=== PATIENT | female | born 1935 | race Caucasian/White ===

== ENCOUNTER 2017-01-27 14:50 | Inpatient (IN) | payer MEDICARE ==
[~2017-01-27 14:50] MED LIST: AMLO10TA4 PO; CYAN10009 PO; DULO30CA2 PO; ESOM40CA PO; ESTR0.623 PO; GLYB5TAB7 PO; HYDR-548 PO; LEVO150T PO; MAGN400O6 PO; MULT1TAB64 PO; Magnesium Oxide PO; Metformin Hcl PO; SIMV20TA6 PO; VALS160T2 PO
[2017-01-27 16:00] VITALS: BP 160/74
[2017-01-27] MEDS ORDERED: Z GUARD REMEDY PASTE 57 GM TUBE TOP PRN (16:30)
[2017-01-27] MEDS ORDERED: DEXTROSE 50% 50 ML DISP.SYRIN IV PRN (17:15)
--- NOTE | 2017-01-27 17:30 | NUR ---
1600 Admitted an 81 y/o female from [facility] with diagnosis of Bilateral CVA transported via gurney. Patient is alert, verbally responsive, able to make needs known, not in any form of acute distress. She denies any pain or discomfort. Oriented to staff, room and use of devices with verbalized understanding. Noted with dressing on the left chest, clean and dry. Per report from nurse Abdullahi from [facility] Loop recorder was just placed this morning on the left chest. Prot[employer] Link Monitor was brought with the patient, plugged in and set it up. Patient corporate law assistant button handed to patient and instructed to press whenever she feels any symptoms like chest pain, dizziness or fainting and verbalized understanding. Jennings catheter removed today as endorsed by Abdullahi. Patient is voiding freely using bed alvarez. Assisted to her needs. Call light placed within reach. Notified Dr. Davalos of admission and saw patient. Spoke to Dr. Kilpatrick regarding admission and verified medication orders and carried out.
[2017-01-27] MEDS: BLOOD SUGAR DIAGNOSTIC 1 EACH STRIP VI SCH ×2 (17:31→21:59)
[2017-01-27] MEDS ORDERED: ATOR80TA PO (18:13)
[2017-01-27] MEDS ORDERED: ONDA4TAB8 PO (18:13)
[2017-01-27] MEDS ORDERED: CARV6.252 PO (18:13)
[2017-01-27] MEDS ORDERED: ACET-2154 PO (18:13)
[2017-01-27] MEDS ORDERED: LEVO112T5 PO (18:13)
[2017-01-27] MEDS ORDERED: INSU3INS6 SQ (18:13)
[2017-01-27] MEDS ORDERED: VALS80TA2 GT (18:13)
[2017-01-27] MEDS ORDERED: ASPI-1169 PO (18:13)
[2017-01-27] MEDS ORDERED: DIPH25TA22 PO (18:13)
[2017-01-27] MEDS ORDERED: CLOP75TA33 PO (18:13)
[2017-01-27] MEDS ORDERED: MECL-102 PO (18:13)
[2017-01-27] MEDS ORDERED: INSU200I SQ (18:13)
[2017-01-27] MEDS ORDERED: CEROVITE SENIOR (18:18)
[2017-01-27] MEDS ORDERED: diphenhydrAMINE 25 MG CAP PO PRN (19:00)
[2017-01-27] MEDS ORDERED: ACETAMINOPHEN 325 MG TABLET PO PRN (19:00)
--- NOTE | 2017-01-27 19:00 | NUR ---
PATIENT ADMITTED DURING MORNING SHFIT AT 1600, UNDER THE CARE DR. SANCHES, MORNING RN VERIFIED ALL ORDERS, PATIENT ALERT ORIENTED, CONTINENT OF BLADDER, VOIDING FREELY, PATIENT HAS LEFT CHEST LOOP RECORDER, LEFT ANTECUBITAL BRUISE, OLD INCISION SCAR ON R INNER THIGH. KEPT CLEAN AND DRY.
[2017-01-27] MEDS: ONDANSETRON ODT 4 MG TAB.RAPDIS SL PRN (19:49)
[2017-01-27 20:00] VITALS: BP 171/81
--- NOTE | 2017-01-27 20:00 | NUR ---
PATIENT HAS ELEVATED BP 171/81. PULSE 76, PATIENT ASYMPTOMATIC, NO COMPLAIN OF HEADACHES, BUT COMPLAINING OF WANTING TO URINATE, GIVEN PAIN BED VERA URINATE PATIENT WITH 150CC YELLOW COLOR URINE. CONT TO MONITOR. PLACE A CALL TO DR SANCHES AWAITING FOR RESPONSE.
--- NOTE | 2017-01-27 20:00 | NUR ---
BLADDER SCAN THE PATIENT WITH 313 URINE, HOWEVER, PATIENT URINATE 200CC IN THE BED VERA VERBALIZED RELIEF, DENIES PAIN AT THIS TIME. CONT TO MONITOR.
--- NOTE | 2017-01-27 20:15 | NUR ---
DR SANCHES HAS NOT RETURNED THE CALL, NOTIFY RN MERCHANDISE PRESENTATION ASSOCIATE, SUGGEST TO MONITOR PATIENT BP AT THIS TIME. CONT TO MONITOR.
[2017-01-27] MEDS ORDERED: HOME MED MISCELLANEOUS SQ SCH (21:00)
[2017-01-27 21:30] VITALS: BP 168/79
--- NOTE | 2017-01-27 21:30 | NUR ---
PATIENT AWAKE ALERT, NO SOB NO CHEST PAIN NOTED, RECHECK BP 168/79, P 77, 0/10 PAIN, NO COMPLAIN OF DIZZINESS, NO HEADACHE, PATIENT STATED THAT HER BP ALWAYS RUNS HIGH CONT TO MONITOR.
[2017-01-27] MEDS: ATORVASTATIN 40 MG TABLET PO SCH (21:42)
[2017-01-27] MEDS: INSULIN DETEMIR 300 UNIT/3 ML CARTRIDGE SQ SCH (21:54)
[2017-01-27] MEDS: INSULIN REGULAR, HUMAN 300 UNIT/3 ML VIAL SQ PRN (22:01)
[2017-01-27 23:00] VITALS: BP 155/70
--- NOTE | 2017-01-27 23:00 | NUR ---
BP TRENDING DOWN, B/P 155/70, P 83, OXGEN SAT 97, NO SOB NO CHEST PAIN, CONT TO MONITOR.
[2017-01-27 23:06] VITALS: BP 122/81
[2017-01-28] MEDS: LEVOTHYROXINE SODIUM 112 MCG TABLET PO SCH (06:26)
[2017-01-28] MEDS: PANTOPRAZOLE SODIUM 40 MG TABLET.DR PO SCH (06:26)
[2017-01-28] MEDS: BLOOD SUGAR DIAGNOSTIC 1 EACH STRIP VI SCH ×4 (06:29→20:41)
--- NOTE | 2017-01-28 06:42 | NUR ---
PATIENT AWAKE ORIENTED, NO SOB NO CHEST PAIN, NO COMPLAIN OF PAIN, PATIENT STILL COMPLAIN OF POSITIONAL VERTIGO DURING CARE, BP STABLE 154/ 78, 76. CONT TO MONITOR.
[2017-01-28 06:49] VITALS: BP 126/51
--- NOTE | 2017-01-28 06:53 | NUR ---
BP 126/51 P76, OXYGEN SAT 97% NO SOB NO CHEST PAIN, CONT TO MONITOR.
[2017-01-28 07:43] LABS: BASOPHILS # (AUTO) 0.1 K/uL (0.0-8.0); BASOPHILS % (AUTO) 0.5 % (0.0-2.0); EOSINOPHILS # (AUTO) 0.4 K/uL (0.0-0.7); EOSINOPHILS % (AUTO) 2.4 % (0.0-7.0); HEMATOCRIT 36.2 % (37-47); HEMOGLOBIN 12.6 G/DL (12.0-16.0); LYMPHOCYTES # (AUTO) 2.6 K/UL (0.8-4.8); LYMPHOCYTES % (AUTO) 16.6 % (20.5-51.5); MEAN CORPUSCULAR HEMOGLOBIN 29.6 UUG (27.0-31.0); MEAN CORPUSCULAR HGB CONC 35 g/dL (32.0-37.0); MEAN CORPUSCULAR VOLUME 85.5 FL (81.0-99.0); MONOCYTES # (AUTO) 1.3 K/UL (0.1-1.30); MONOCYTES % (AUTO) 8.5 % (0.0-11.0); PLATELET COUNT (AUTO) 264 K/UL (150-450); RED BLOOD CELL COUNT(AUTO) 4.23 MIL/UL (4.2-5.4); WHITE BLOOD COUNT (AUTO) 15.4 K/UL (4.0-11.2)
[2017-01-28 08:00] LABS: CARBON DIOXIDE 28 mmol/L (21-32); CHLORIDE 102 mmol/L (98-107); CHOLESTEROL 124 mg/dL (<200); CREATININE 0.8 mg/dL (0.6-1.3); GLUCOSE 154 mg/dL (74-106); HDL CHOLESTEROL 50 mg/dL (40-60); POTASSIUM 4.1 mmol/L (3.5-5.1); TRIGLYCERIDES 116 MG/DL (30-150); UREA NITROGEN, BLOOD 8 mg/dL (7-18)
[2017-01-28] MEDS ORDERED: HOME MED MISCELLANEOUS SQ SCH (08:00)
--- NOTE | 2017-01-28 08:00 | NUR ---
Received patient awake in bed, watching tv, alert, verbally responsive, not in any form of acute distress. She denies any pain or discomfort at this time. Call light placed within reach. [employer] Link Monitor at bedside plugged and patient pediatric physician assistant button at patient's hand and instructed on the use and she verbalized understanding. Attended to her needs.
[2017-01-28 08:05] LABS: MAGNESIUM 1.2 mg/dL (1.8-2.4)
[2017-01-28] MEDS: MULTIVITAMINS,THERAPEUTIC TABLET PO SCH ×2 (08:19→17:52)
[2017-01-28] MEDS: ASPIRIN 81 MG TAB.CHEW PO SCH (08:19)
[2017-01-28] MEDS: CARVEDILOL 6.25 MG TABLET PO SCH ×2 (08:19→17:53)
[2017-01-28] MEDS: CLOPIDOGREL 75 MG TABLET PO SCH (08:19)
[2017-01-28 08:23] VITALS: BP 150/64
[2017-01-28] MEDS: INSULIN LISPRO 1000 UNITS/10 ML VIAL(HUMALOG) SQ SCH ×3 (08:24→17:00)
[2017-01-28] MEDS: INSULIN REGULAR, HUMAN 300 UNIT/3 ML VIAL SQ PRN ×2 (08:28→21:05)
[2017-01-28] MEDS ORDERED: VALSARTAN 80 MG TABLET PO SCH (09:00)
[2017-01-28] MEDS ORDERED: HOME MED MISCELLANEOUS PO SCH (09:00)
[2017-01-28] MEDS: MECLIZINE HCL 25 MG TABLET PO PRN (11:17)
[2017-01-28] MEDS: MAGNESIUM OXIDE 400 MG TABLET PO SCH ×2 (12:59→20:55)
--- NOTE | 2017-01-28 14:48 | NUR ---
REHAB TEAM CONFERENCE 01/28/17
--- NOTE | 2017-01-28 15:00 | NUR ---
Notified Dr. Sevilla who came to see patient regarding patient having episode of difficulty initiating to urinate and MD ordered UA w/ C&S. Specimen collected. Also informed MD regarding oxygen at room air 91-92% as endorsed by marble setter nurse. MD ordered chest X-Ray and and may use oxygen 2LPM via NC PRN for SpO2 92 and below. Patient made aware and agreeable.
[2017-01-28 15:08] LABS: *BILIRUBIN,URIN NEGATIVE (NEGATIVE); *BLOOD, URINE 2+ (NEGATIVE); *CLARITY,URINE TURBID (CLEAR); *COLOR,URINE YELLOW (YELLOW); *KETONES,URINE NEGATIVE (NEGATIVE); *PROTEIN,URINE 2+ (NEGATIVE); LEUKOCYTE ESTERASE ,URINE 3+ (NEGATIVE); NITRITE, URINE POSITIVE (NEGATIVE); UGLUCOSE NEGATIVE (NEGATIVE)
[2017-01-28 16:23] LABS: BACTERIA,URINE MANY /HPF (NONE SEEN); SQUAMOUS EPITHELIAL CELL,UR FEW /HPF (NONE SEEN); WBC,URINE TNTC /HPF (0-3)
[2017-01-28] MEDS: VALSARTAN 80 MG TABLET PO SCH (17:52)
[2017-01-28 20:28] VITALS: BP 151/64
[2017-01-28] MEDS: ATORVASTATIN 40 MG TABLET PO SCH (20:55)
[2017-01-28] MEDS: INSULIN DETEMIR 300 UNIT/3 ML CARTRIDGE SQ SCH (21:06)
[2017-01-28] MEDS: LEVOFLOXACIN 250 MG TABLET PO SCH (22:21)
[2017-01-29] MEDS: LEVOTHYROXINE SODIUM 112 MCG TABLET PO SCH (06:57)
[2017-01-29] MEDS: PANTOPRAZOLE SODIUM 40 MG TABLET.DR PO SCH (06:58)
[2017-01-29] MEDS: BLOOD SUGAR DIAGNOSTIC 1 EACH STRIP VI SCH ×4 (07:05→21:19)
[2017-01-29 07:44] LABS: BASOPHILS % (AUTO) 0.3 % (0.0-2.0); EOSINOPHILS # (AUTO) 0.4 K/uL (0.0-0.7); EOSINOPHILS % (AUTO) 2.8 % (0.0-7.0); HEMATOCRIT 36.7 % (37-47); HEMOGLOBIN 12.3 G/DL (12.0-16.0); LYMPHOCYTES % (AUTO) 21.8 % (20.5-51.5); MEAN CORPUSCULAR HEMOGLOBIN 29.2 UUG (27.0-31.0); MEAN CORPUSCULAR HGB CONC 33 g/dL (32.0-37.0); MEAN CORPUSCULAR VOLUME 87.3 FL (81.0-99.0); MONOCYTES # (AUTO) 1.4 K/UL (0.1-1.30); MONOCYTES % (AUTO) 10.3 % (0.0-11.0); NEUTROPHILS # (AUTO) 8.9 K/UL (1.8-8.9); NEUTROPHILS % (AUTO) 64.8 % (38.5-71.5); PLATELET COUNT (AUTO) 194 K/UL (150-450); WHITE BLOOD COUNT (AUTO) 13.7 K/UL (4.0-11.2)
[2017-01-29 08:00] VITALS: BP 134/72
[2017-01-29] MEDS: INSULIN LISPRO 1000 UNITS/10 ML VIAL(HUMALOG) SQ SCH ×3 (08:04→17:00)
[2017-01-29] MEDS: LEVOFLOXACIN 250 MG TABLET PO SCH (08:10)
[2017-01-29] MEDS: CLOPIDOGREL 75 MG TABLET PO SCH (08:10)
[2017-01-29] MEDS: ASPIRIN 81 MG TAB.CHEW PO SCH (08:10)
[2017-01-29] MEDS: MULTIVITAMINS,THERAPEUTIC TABLET PO SCH ×2 (08:11→16:40)
[2017-01-29] MEDS: VALSARTAN 80 MG TABLET PO SCH ×2 (08:12→16:41)
[2017-01-29] MEDS: CARVEDILOL 6.25 MG TABLET PO SCH ×2 (08:12→18:41)
[2017-01-29 08:26] LABS: ALANINE AMINOTRANSFERASE 16 U/L (14-59); ALKALINE PHOSPHATASE 80 U/L (50-136); ASPARTATE AMINOTRANSFERASE 16 U/L (15-37); BILIRUBIN,TOTAL 0.4 mg/dL (0.2-1.0); CARBON DIOXIDE 27 mmol/L (21-32); CHLORIDE 101 mmol/L (98-107); CREATININE 0.7 mg/dL (0.6-1.3); GLUCOSE 150 mg/dL (74-106); PHOSPHOROUS 3.7 mg/dL (2.5-4.9); POTASSIUM 4.3 mmol/L (3.5-5.1); TOTAL PROTEIN, SERUM 6.7 g/dL (6.4-8.2); UREA NITROGEN, BLOOD 8 mg/dL (7-18)
[2017-01-29 08:38] LABS: MAGNESIUM 1.3 mg/dL (1.8-2.4)
[2017-01-29] MEDS: ONDANSETRON ODT 4 MG TAB.RAPDIS SL PRN ×2 (08:52→16:43)
[2017-01-29] MEDS: MECLIZINE HCL 25 MG TABLET PO PRN ×2 (08:52→16:43)
[2017-01-29 11:57] VITALS: BP 128/59
[2017-01-29] MEDS ORDERED: LEVOFLOXACIN 250 MG TABLET PO SCH (14:00)
--- NOTE | 2017-01-29 15:00 | NUR ---
Called pharmacy regarding levaquin tab- already given this am. Will be rescheduled for 0900 tomorrow per pharmacist.
--- NOTE | 2017-01-29 15:04 | NUR ---
Internal Grinding Machine Operator: SW met attempted to meet with pt today to assess needs and provide support, however pt is asleep. Pt is an 81-year old female admitted to ARU for functional decline and impaired ambulation. Information was obtained through pt's son, Huber during yesterdays 01/28/17 IDT meeting. Per son, the pt lives at home with him and her family. Pt has a strong support and involved family. Per son, the pt has little motivation at home in completing her ADL's. Pt's son reported the pt may become resistant to complying with ARU goals. SW will address patient's issues of loss related to her decline in functioning. SW will provide linkage to resources (caregiving). SW will encourage pt to comply with ARU goals.
[2017-01-29] MEDS ORDERED: MAGNESIUM OXIDE 400 MG TABLET PO ONE (16:00)
--- NOTE | 2017-01-29 16:50 | NUR ---
Pt. c/o nausea and blurred vision. Meclizine and Zofran given per aug. . small meals. 2 l via n/c. Participation in PT and OT limited today. No acute distress.
--- NOTE | 2017-01-29 19:29 | NUR ---
PT IS LAYING IN BED COMFORTABLY. NO S/S OF RESPIRATORY DISTRESS NOTED ALL SAFETY NEEDS ARE MET. PT REPORT RECEIVED FROM SUNDAY ALVARADO AT [id number]
--- NOTE | 2017-01-29 19:30 | NUR ---
Patient received in bed. Family at bedside. Alert and verbally responsive. Able to make needs known. Denies any pain and discomfort. No acute distress. On O2 @ 2L via NC. Kept clean and dry. All needs attended to promptly. Calll light within reach. Will continue to monitor.
[2017-01-29] MEDS: MAGNESIUM OXIDE 400 MG TABLET PO SCH (21:19)
[2017-01-29] MEDS: ATORVASTATIN 40 MG TABLET PO SCH (21:19)
[2017-01-29] MEDS: DIAZEPAM 2 MG TABLET PO SCH (21:19)
[2017-01-29] MEDS: INSULIN DETEMIR 300 UNIT/3 ML CARTRIDGE SQ SCH (21:24)
[2017-01-29] MEDS: INSULIN REGULAR, HUMAN 300 UNIT/3 ML VIAL SQ PRN (21:25)
[2017-01-29 22:10] VITALS: BP 152/58
[2017-01-30] MEDS: PANTOPRAZOLE SODIUM 40 MG TABLET.DR PO SCH (06:34)
[2017-01-30] MEDS: LEVOTHYROXINE SODIUM 112 MCG TABLET PO SCH (06:34)
[2017-01-30] MEDS: BLOOD SUGAR DIAGNOSTIC 1 EACH STRIP VI SCH ×4 (06:39→21:53)
--- NOTE | 2017-01-30 07:00 | NUR ---
Patient is awake at this time. 7am meds given. Alert and verbally responsive. Able to make needs known. No c/o pain and discomfort. No acute distress. BS is 143. Will endorse to AM shift. All needs attended to promptly. Call light within reach. Will continue to monitor.
--- NOTE | 2017-01-30 07:05 | NUR ---
Pt received in bed, a/ox3, no distress noted. HOB elevated, on O2 at 2L via NC, Plan of care discussed, call light within reach, bed kept low/locked position.
[2017-01-30 08:00] VITALS: BP 152/60
[2017-01-30] MEDS: CARVEDILOL 6.25 MG TABLET PO SCH ×2 (09:18→17:39)
[2017-01-30] MEDS: CLOPIDOGREL 75 MG TABLET PO SCH (09:19)
[2017-01-30] MEDS: LEVOFLOXACIN 250 MG TABLET PO SCH (09:19)
[2017-01-30] MEDS: MULTIVITAMINS,THERAPEUTIC TABLET PO SCH ×2 (09:19→17:35)
[2017-01-30] MEDS: ASPIRIN 81 MG TAB.CHEW PO SCH (09:19)
[2017-01-30] MEDS: VALSARTAN 80 MG TABLET PO SCH ×2 (09:19→17:39)
[2017-01-30] MEDS: INSULIN LISPRO 1000 UNITS/10 ML VIAL(HUMALOG) SQ SCH ×3 (09:22→17:38)
--- NOTE | 2017-01-30 17:44 | NUR ---
Pt in bed, no distress noted. B/P 140/53 HR 68 Norvasc and Coreg administer as schedule. Blood sugar 211 with 6 units of Humalog given.
--- NOTE | 2017-01-30 18:49 | NUR ---
Pt remains in bed, no distress noted. Pt calls frequently for bedpan voids small amount, incontinent episodes at times.
[2017-01-30 21:00] VITALS: BP 149/60
[2017-01-30] MEDS: DIAZEPAM 2 MG TABLET PO SCH (21:51)
[2017-01-30] MEDS: MAGNESIUM OXIDE 400 MG TABLET PO SCH (21:51)
[2017-01-30] MEDS: ATORVASTATIN 40 MG TABLET PO SCH (21:51)
[2017-01-30] MEDS: INSULIN REGULAR, HUMAN 300 UNIT/3 ML VIAL SQ PRN (21:58)
[2017-01-30] MEDS: INSULIN DETEMIR 300 UNIT/3 ML CARTRIDGE SQ SCH (21:59)
--- NOTE | 2017-01-31 06:00 | NUR ---
pt slept most of the night ,denies any pain, incontinent, no bm overnight,vss,afebrile, continue on loop recorder, uneventful night, kept attended.call light at reached.
[2017-01-31] MEDS: PANTOPRAZOLE SODIUM 40 MG TABLET.DR PO SCH (06:30)
[2017-01-31] MEDS: LEVOTHYROXINE SODIUM 112 MCG TABLET PO SCH (06:30)
[2017-01-31] MEDS: BLOOD SUGAR DIAGNOSTIC 1 EACH STRIP VI SCH ×3 (06:35→16:29)
[2017-01-31 08:34] VITALS: BP 157/68
[2017-01-31] MEDS: LEVOFLOXACIN 250 MG TABLET PO SCH (08:58)
[2017-01-31] MEDS: VALSARTAN 80 MG TABLET PO SCH (08:58)
[2017-01-31] MEDS: MULTIVITAMINS,THERAPEUTIC TABLET PO SCH (08:58)
[2017-01-31] MEDS: ASPIRIN 81 MG TAB.CHEW PO SCH (08:58)
[2017-01-31] MEDS: CARVEDILOL 6.25 MG TABLET PO SCH (08:59)
[2017-01-31] MEDS: CLOPIDOGREL 75 MG TABLET PO SCH (08:59)
[2017-01-31] MEDS: MECLIZINE HCL 25 MG TABLET PO PRN (09:19)
[2017-01-31] MEDS: INSULIN LISPRO 1000 UNITS/10 ML VIAL(HUMALOG) SQ SCH ×2 (09:19→11:36)
[2017-01-31] MEDS ORDERED: CLONIDINE HCL 0.1 MG TABLET PO PRN (11:15)
[2017-01-31] MEDS: INSULIN REGULAR, HUMAN 300 UNIT/3 ML VIAL SQ PRN (11:37)
--- NOTE | 2017-01-31 11:44 | NUR ---
PT HAD A BLOOD PRESSURE ON THE [address] MEDINA FOR AN ORDER OF A PRN BP MED. ORDERED CLONIDINE .1MG Q6HPRN FOR BP GREATER THAN 145. MED PROVIDED. WILL CONTINUE TO MONITOR HYPERTENSION .
--- NOTE | 2017-01-31 16:16 | NUR ---
pt appeared to be clammy and sleepy during pt rounding. pt vitals assessed. blood sugar 74. bp on the 160s. no changes on NIH scale. pt is afebrile. pt seen by dr Davalos and ordered ekg. will monitor for pt for any complications.
--- NOTE | 2017-02-02 | NUR ---
Sound asleep, easily awakened. Breathing WNL. Addendum: 02/03/17 at 0246 by CADE HAMEED RN wrong time.
[2017-02-02] MEDS ORDERED: AMLO5TAB2 PO (07:48)
[2017-02-02] MEDS ORDERED: LEVO500T90 PO (07:52)
--- NOTE | 2017-02-02 15:00 | NUR ---
Patient returned from [facility] at [facility]. Received patient awake, alert, verbally responsive, coherent, afebrile, not in any form of acute distress. She denies any pain or discomfort at this time. Reoriented to staff, room and use of devices. Call light placed within reach. Loop recorder on left upper chest, patient monitor at bedside and plugged and handed patient assist button and instructed to press when feels symptoms with verbalized understanding. Assisted to her needs.
[2017-02-02 15:16] VITALS: BP 122/47
--- NOTE | 2017-02-02 16:00 | NUR ---
Notified Dr. Sevilla regarding patient coming back, verified orders for medications to continue, orders carried out and faxed to pharmacy.
[2017-02-02] MEDS ORDERED: AMLO5TAB4 PO (17:34)
[2017-02-02] MEDS ORDERED: diphenhydrAMINE 25 MG CAP PO PRN (18:30)
[2017-02-02] MEDS ORDERED: MECLIZINE HCL 25 MG TABLET PO PRN (18:30)
[2017-02-02] MEDS ORDERED: Z GUARD REMEDY PASTE 57 GM TUBE TOP PRN (18:30)
[2017-02-02] MEDS ORDERED: CLONIDINE HCL 0.1 MG TABLET PO PRN (18:30)
[2017-02-02] MEDS ORDERED: DEXTROSE 50% 50 ML DISP.SYRIN IV PRN (18:30)
--- NOTE | 2017-02-02 19:30 | NUR ---
Received bedside report from SUNDAY Arreaga. Pt currently asleep,but easily awakened, breathing normally.
[2017-02-02 20:00] VITALS: BP 143/58
[2017-02-02] MEDS: MAGNESIUM OXIDE 400 MG TABLET PO SCH (20:59)
[2017-02-02] MEDS: ATORVASTATIN 40 MG TABLET PO SCH (20:59)
[2017-02-02] MEDS: DIAZEPAM 2 MG TABLET PO SCH (20:59)
--- NOTE | 2017-02-02 21:00 | NUR ---
Meds given due at night. Pt swallowed pills 2 at a time. Pt requested her diapers to be changed, encouraged to go to bathroom, has not seen by PT since she arrived from Med Surg floor. Pt able to turn to side as instructed. Elevate legs off heels w/ pillows.Discuss the plan regarding rehabilitation, pt was receptive about it.
[2017-02-02] MEDS: INSULIN DETEMIR 300 UNIT/3 ML CARTRIDGE SQ SCH (21:03)
[2017-02-02] MEDS: INSULIN REGULAR, HUMAN 300 UNIT/3 ML VIAL SQ PRN (21:04)
[2017-02-02] MEDS: BLOOD SUGAR DIAGNOSTIC 1 EACH STRIP VI SCH (21:05)
--- NOTE | 2017-02-03 | NUR ---
Sound asleep, easily awakened. Breathing WNL.
--- NOTE | 2017-02-03 02:00 | NUR ---
Changed incontinent pad, pt is aware that she's wet however, won't call the nurse/geospatial program management officer.
--- NOTE | 2017-02-03 04:00 | NUR ---
Sound asleep. Breathing normally, monitor accordingly.No significant changes occured.
--- NOTE | 2017-02-03 06:00 | NUR ---
Changed incontinent pads. Encouraged to sleep some more.Monitor accordingly.
[2017-02-03] MEDS: BLOOD SUGAR DIAGNOSTIC 1 EACH STRIP VI SCH ×4 (06:58→22:10)
[2017-02-03] MEDS: PANTOPRAZOLE SODIUM 40 MG TABLET.DR PO SCH (06:58)
[2017-02-03] MEDS: LEVOTHYROXINE SODIUM 112 MCG TABLET PO SCH (06:58)
[2017-02-03] MEDS: INSULIN LISPRO 1000 UNITS/10 ML VIAL(HUMALOG) SQ SCH ×3 (08:00→17:00)
[2017-02-03 08:04] VITALS: BP 138/57
[2017-02-03] MEDS ORDERED: AMLODIPINE 5 MG TABLET PO SCH (09:00)
[2017-02-03] MEDS: CLOPIDOGREL 75 MG TABLET PO SCH (10:24)
[2017-02-03] MEDS: MULTIVITAMINS,THERAPEUTIC TABLET PO SCH ×2 (10:24→17:11)
[2017-02-03] MEDS: ASPIRIN 81 MG TAB.CHEW PO SCH (10:24)
[2017-02-03] MEDS: AMLODIPINE 5 MG TABLET PO SCH (10:24)
[2017-02-03 20:25] VITALS: BP 137/61
[2017-02-03] MEDS: MAGNESIUM OXIDE 400 MG TABLET PO SCH (21:59)
[2017-02-03] MEDS: DIAZEPAM 2 MG TABLET PO SCH (21:59)
[2017-02-03] MEDS: ATORVASTATIN 40 MG TABLET PO SCH (21:59)
[2017-02-03] MEDS: INSULIN DETEMIR 300 UNIT/3 ML CARTRIDGE SQ SCH (22:20)
[2017-02-03] MEDS: INSULIN REGULAR, HUMAN 300 UNIT/3 ML VIAL SQ PRN (22:21)
[2017-02-04] MEDS: ACETAMINOPHEN 325 MG TABLET PO PRN ×2 (04:44→23:21)
[2017-02-04] MEDS: PANTOPRAZOLE SODIUM 40 MG TABLET.DR PO SCH (06:25)
[2017-02-04] MEDS: LEVOTHYROXINE SODIUM 112 MCG TABLET PO SCH (06:25)
[2017-02-04] MEDS: BLOOD SUGAR DIAGNOSTIC 1 EACH STRIP VI SCH ×4 (06:33→21:49)
[2017-02-04 08:35] VITALS: BP 141/60
[2017-02-04] MEDS: ASPIRIN 81 MG TAB.CHEW PO SCH (09:25)
[2017-02-04] MEDS: MULTIVITAMINS,THERAPEUTIC TABLET PO SCH ×2 (09:25→15:48)
[2017-02-04] MEDS: AMLODIPINE 5 MG TABLET PO SCH (09:25)
[2017-02-04] MEDS: CLOPIDOGREL 75 MG TABLET PO SCH (09:25)
[2017-02-04] MEDS: INSULIN LISPRO 1000 UNITS/10 ML VIAL(HUMALOG) SQ SCH ×3 (09:28→17:00)
[2017-02-04] MEDS: INSULIN REGULAR, HUMAN 300 UNIT/3 ML VIAL SQ PRN (12:13)
--- NOTE | 2017-02-04 14:21 | NUR ---
REHAB IDT SUMMAMRY
[2017-02-04 20:47] VITALS: BP 131/58
[2017-02-04] MEDS: MAGNESIUM OXIDE 400 MG TABLET PO SCH (21:51)
[2017-02-04] MEDS: ATORVASTATIN 40 MG TABLET PO SCH (21:52)
[2017-02-04] MEDS: DIAZEPAM 2 MG TABLET PO SCH (21:52)
[2017-02-04] MEDS: INSULIN DETEMIR 300 UNIT/3 ML CARTRIDGE SQ SCH (21:56)
--- NOTE | 2017-02-05 02:36 | NUR ---
Patient complaining of extreme pain (10 out of 10). Patient screaming, grimacing and grasping site. Patient states that her pain is located on the left side on her ribs. Called and spoke with regarding managing pain. Will administer one time dose of Norco5 325mg as ordered. Will continue to monitor closely
[2017-02-05] MEDS ORDERED: HYDROCODONE/APAP 5-325MG TABLET PO PRN (02:45)
[2017-02-05] MEDS ORDERED: HYDROCODONE/APAP 5-325MG TABLET ONE (02:49)
[2017-02-05] MEDS: LEVOTHYROXINE SODIUM 112 MCG TABLET PO SCH (06:18)
[2017-02-05] MEDS: PANTOPRAZOLE SODIUM 40 MG TABLET.DR PO SCH (06:18)
[2017-02-05] MEDS: BLOOD SUGAR DIAGNOSTIC 1 EACH STRIP VI SCH ×4 (06:55→20:51)
[2017-02-05] MEDS: INSULIN REGULAR, HUMAN 300 UNIT/3 ML VIAL SQ PRN ×4 (08:01→20:55)
[2017-02-05 08:12] VITALS: BP 166/71
[2017-02-05] MEDS: ASPIRIN 81 MG TAB.CHEW PO SCH (09:12)
[2017-02-05] MEDS: CLOPIDOGREL 75 MG TABLET PO SCH (09:12)
[2017-02-05] MEDS: AMLODIPINE 5 MG TABLET PO SCH (09:12)
[2017-02-05] MEDS: INSULIN LISPRO 1000 UNITS/10 ML VIAL(HUMALOG) SQ SCH ×3 (09:12→17:12)
[2017-02-05] MEDS: MULTIVITAMINS,THERAPEUTIC TABLET PO SCH ×2 (09:13→17:13)
[2017-02-05] MEDS: ACETAMINOPHEN 325 MG TABLET PO PRN ×2 (11:26→17:56)
--- NOTE | 2017-02-05 18:22 | NUR ---
Patient labile mood, easily irritable, need lots of prompting to get out of bed and ambulate. Patient ambulates with PT in am, went to activity room, tolerated well, no distress noted. Patient with poor appetite, ate 50% lunch, refused dinner. Medication compliant and cooperative, c/o rib pain at 6/10, tylenol 650mg PO given in am and at 1756, reassessed in an hour, pain /10. Will continue to monitor for safety and needs.
[2017-02-05 19:55] VITALS: BP 149/69
[2017-02-05] MEDS: INSULIN DETEMIR 300 UNIT/3 ML CARTRIDGE SQ SCH (20:52)
[2017-02-05] MEDS: MAGNESIUM OXIDE 400 MG TABLET PO SCH (20:57)
[2017-02-05] MEDS: ATORVASTATIN 40 MG TABLET PO SCH (20:57)
[2017-02-05] MEDS: DIAZEPAM 2 MG TABLET PO SCH (20:57)
--- NOTE | 2017-02-05 21:00 | NUR ---
nsg: pt family visited. pt mood is labile. no acute distress noted. cont to monitor.
--- NOTE | 2017-02-06 05:23 | NUR ---
nsg: pt irritable at times. slept entire night. refused to get up to go to the toilet. encouragement provided.
[2017-02-06] MEDS: PANTOPRAZOLE SODIUM 40 MG TABLET.DR PO SCH (06:33)
[2017-02-06] MEDS: LEVOTHYROXINE SODIUM 112 MCG TABLET PO SCH (06:33)
[2017-02-06] MEDS: BLOOD SUGAR DIAGNOSTIC 1 EACH STRIP VI SCH ×5 (06:37→22:09)
--- NOTE | 2017-02-06 06:45 | NUR ---
nsg: ambulated to the bathroom with fww, with 1 person assist, needs encouragement and reinforcement.
--- NOTE | 2017-02-06 07:25 | NUR ---
NSG PT IN BED CALL LIGHT IN REACH, NO C/O PAIN NO DISTRESS.
[2017-02-06 08:00] VITALS: BP 137/59
[2017-02-06] MEDS: INSULIN LISPRO 1000 UNITS/10 ML VIAL(HUMALOG) SQ SCH ×3 (08:19→17:00)
[2017-02-06] MEDS ORDERED: AMLODIPINE 5 MG TABLET PO SCH (09:00)
[2017-02-06] MEDS: CLOPIDOGREL 75 MG TABLET PO SCH (09:46)
[2017-02-06] MEDS: AMLODIPINE 10 MG TABLET PO SCH (09:47)
[2017-02-06] MEDS: MULTIVITAMINS,THERAPEUTIC TABLET PO SCH ×2 (09:47→16:42)
[2017-02-06] MEDS: ASPIRIN 81 MG TAB.CHEW PO SCH (09:48)
[2017-02-06] MEDS: INSULIN REGULAR, HUMAN 300 UNIT/3 ML VIAL SQ PRN ×3 (11:28→22:10)
[2017-02-06] MEDS: ACETAMINOPHEN 325 MG TABLET PO PRN (11:36)
--- NOTE | 2017-02-06 14:55 | NUR ---
NSG PT REMAINS IN BED, DOES NOT WANT TO GET UP, CALL LIGHT IN REACH.
--- NOTE | 2017-02-06 17:19 | NUR ---
EUGENIA BS 134, PT HAS VERY POOR INTAKE, DID NOT GIVE LISPRO FOR THAT REASON.
--- NOTE | 2017-02-06 18:23 | NUR ---
NSG ALL NEEDS MET, PT RESTING IN BED, NO C/O PAIN, CALL LIGHT IN REACH.
[2017-02-06 20:00] VITALS: BP 148/66
[2017-02-06] MEDS: MAGNESIUM OXIDE 400 MG TABLET PO SCH (22:01)
[2017-02-06] MEDS: ATORVASTATIN 40 MG TABLET PO SCH (22:01)
[2017-02-06] MEDS: DIAZEPAM 2 MG TABLET PO SCH (22:02)
[2017-02-06] MEDS: INSULIN DETEMIR 300 UNIT/3 ML CARTRIDGE SQ SCH (22:07)
[2017-02-07] MEDS: LEVOTHYROXINE SODIUM 112 MCG TABLET PO SCH (06:39)
[2017-02-07] MEDS: PANTOPRAZOLE SODIUM 40 MG TABLET.DR PO SCH (06:40)
[2017-02-07] MEDS: BLOOD SUGAR DIAGNOSTIC 1 EACH STRIP VI SCH ×4 (06:44→21:03)
[2017-02-07] MEDS: INSULIN LISPRO 1000 UNITS/10 ML VIAL(HUMALOG) SQ SCH ×4 (08:00→16:47)
[2017-02-07 08:12] VITALS: BP 115/57
[2017-02-07] MEDS: CLOPIDOGREL 75 MG TABLET PO SCH (08:50)
[2017-02-07] MEDS: MULTIVITAMINS,THERAPEUTIC TABLET PO SCH ×2 (08:50→17:13)
[2017-02-07] MEDS: ASPIRIN 81 MG TAB.CHEW PO SCH (08:51)
[2017-02-07] MEDS: AMLODIPINE 10 MG TABLET PO SCH (08:51)
[2017-02-07] MEDS: ONDANSETRON ODT 4 MG TAB.RAPDIS SL PRN (11:42)
[2017-02-07] MEDS: INSULIN REGULAR, HUMAN 300 UNIT/3 ML VIAL SQ PRN ×2 (12:11→21:10)
--- NOTE | 2017-02-07 18:22 | NUR ---
patient had a good day today. family visited patient and brought in a sandwich for dinner because patient doesnt like the food served. Morning and dinner insulin held due to patient blood sugar being 113 in the am and 74 for dinner. Juice was given.
[2017-02-07 21:04] VITALS: BP 144/61
[2017-02-07] MEDS: MAGNESIUM OXIDE 400 MG TABLET PO SCH (21:04)
[2017-02-07] MEDS: ATORVASTATIN 40 MG TABLET PO SCH (21:04)
[2017-02-07] MEDS: DIAZEPAM 2 MG TABLET PO SCH (21:04)
[2017-02-07] MEDS: INSULIN DETEMIR 300 UNIT/3 ML CARTRIDGE SQ SCH (21:10)
[2017-02-08] MEDS: PANTOPRAZOLE SODIUM 40 MG TABLET.DR PO SCH (06:39)
[2017-02-08] MEDS: LEVOTHYROXINE SODIUM 112 MCG TABLET PO SCH (06:39)
[2017-02-08] MEDS: BLOOD SUGAR DIAGNOSTIC 1 EACH STRIP VI SCH ×4 (06:47→21:23)
[2017-02-08] MEDS: INSULIN LISPRO 1000 UNITS/10 ML VIAL(HUMALOG) SQ SCH ×3 (08:00→17:35)
[2017-02-08] MEDS: CLOPIDOGREL 75 MG TABLET PO SCH (09:01)
[2017-02-08] MEDS: ASPIRIN 81 MG TAB.CHEW PO SCH (09:01)
[2017-02-08] MEDS: MULTIVITAMINS,THERAPEUTIC TABLET PO SCH ×2 (09:01→17:32)
[2017-02-08] MEDS: AMLODIPINE 10 MG TABLET PO SCH (09:02)
--- NOTE | 2017-02-08 12:57 | NUR ---
PT.OOB WORKING WITH P.T. /O.T.THIS AM. SITTING UP IN [facility] FOR LUNCH. WHEN ASKED TO PARTICIPATE IN CARE SHE STATES" I CAN'T". PT. ENCOURAGED TO SIT UP IN CHAIR AND WAIT FOR O.T. AFTER LUNCH. PT. SLIGHLTY RESISTANT WITH THERAPY. 96 % ON R/A. FAIR APPETITE.
--- NOTE | 2017-02-08 17:59 | NUR ---
2 IV ATTEMPTS MADE WITH BLOOD RETURN BUT UNABLE TO ADVANCE. PT. NOT TOLERATING , GETTING ANXIOUS WITH IV INSERTION AND REFUSES. PT. INSTRUCTED RE. NEED FOR ACCESS DUE TO POTENTIAL HYPOGLYCEMIA DUE TO POOR INTAKE. PT. ENC. TO HAVE GREATER PO INTAKE. PT. AGREED AND 2 APPLE SAUCED AND 2 PUDDINGS. DISCUSSED DIETARY NEEDS.
--- NOTE | 2017-02-08 19:01 | NUR ---
DINNER BROUGHT FOR PT. AND SHE HAD "ONE BITE" PER SON.
[2017-02-08] MEDS: MAGNESIUM OXIDE 400 MG TABLET PO SCH (21:22)
[2017-02-08] MEDS: DIAZEPAM 2 MG TABLET PO SCH (21:22)
[2017-02-08] MEDS: ATORVASTATIN 40 MG TABLET PO SCH (21:22)
[2017-02-08] MEDS: INSULIN DETEMIR 300 UNIT/3 ML CARTRIDGE SQ SCH (21:25)
[2017-02-08] MEDS: INSULIN REGULAR, HUMAN 300 UNIT/3 ML VIAL SQ PRN (21:27)
[2017-02-08 21:48] VITALS: BP 125/54
[2017-02-09] MEDS: LEVOTHYROXINE SODIUM 112 MCG TABLET PO SCH (06:27)
[2017-02-09] MEDS: PANTOPRAZOLE SODIUM 40 MG TABLET.DR PO SCH (06:27)
[2017-02-09] MEDS: BLOOD SUGAR DIAGNOSTIC 1 EACH STRIP VI SCH ×4 (06:27→20:59)
[2017-02-09 08:00] VITALS: BP 150/71
[2017-02-09] MEDS: INSULIN LISPRO 1000 UNITS/10 ML VIAL(HUMALOG) SQ SCH ×3 (08:00→17:18)
[2017-02-09] MEDS: CLOPIDOGREL 75 MG TABLET PO SCH (08:41)
[2017-02-09] MEDS: AMLODIPINE 10 MG TABLET PO SCH (08:41)
[2017-02-09] MEDS: ASPIRIN 81 MG TAB.CHEW PO SCH (08:41)
[2017-02-09] MEDS: MULTIVITAMINS,THERAPEUTIC TABLET PO SCH ×2 (08:41→17:17)
[2017-02-09] MEDS: INSULIN REGULAR, HUMAN 300 UNIT/3 ML VIAL SQ PRN ×2 (12:36→21:05)
--- NOTE | 2017-02-09 18:54 | NUR ---
Patient had an uneventful day. Worked with PT/OT very well today. Patient didn't receive insulin this am due blood sugar being 93. Patient states she doesn't like the food being severed. Called her son to bring in food for patient. Addendum: 02/09/17 at 1857 by ANTONIA MCKEON RN Psychiatrist came and saw patient this afternoon and started patient on Cymbalta.
[2017-02-09 20:00] VITALS: BP 119/51
[2017-02-09] MEDS: DULOXETINE 30 MG CAPSULE.DR PO SCH (20:59)
[2017-02-09] MEDS: ATORVASTATIN 40 MG TABLET PO SCH (20:59)
[2017-02-09] MEDS: MAGNESIUM OXIDE 400 MG TABLET PO SCH (20:59)
[2017-02-09] MEDS: DIAZEPAM 2 MG TABLET PO SCH (21:00)
--- NOTE | 2017-02-09 21:00 | NUR ---
pt made aware ,will start on new medication for depression, when asked if she has thought of killing herself or , pt nodded and say "no". will continue to monitor.vss,afebrile.
[2017-02-09] MEDS: INSULIN DETEMIR 300 UNIT/3 ML CARTRIDGE SQ SCH (21:05)
--- NOTE | 2017-02-10 06:00 | NUR ---
pt nauseated this morning but no vomiting,given zofran oral.incontinent of bladder, no bm overnight.
[2017-02-10] MEDS: BLOOD SUGAR DIAGNOSTIC 1 EACH STRIP VI SCH ×4 (06:11→23:58)
[2017-02-10] MEDS: ONDANSETRON ODT 4 MG TAB.RAPDIS SL PRN (06:12)
[2017-02-10] MEDS: PANTOPRAZOLE SODIUM 40 MG TABLET.DR PO SCH (06:12)
[2017-02-10] MEDS: LEVOTHYROXINE SODIUM 112 MCG TABLET PO SCH (06:12)
[2017-02-10] MEDS: MULTIVITAMINS,THERAPEUTIC TABLET PO SCH ×2 (08:27→17:16)
[2017-02-10] MEDS: ASPIRIN 81 MG TAB.CHEW PO SCH (08:27)
[2017-02-10] MEDS: CLOPIDOGREL 75 MG TABLET PO SCH (08:27)
[2017-02-10] MEDS: AMLODIPINE 10 MG TABLET PO SCH (08:27)
[2017-02-10] MEDS: INSULIN LISPRO 1000 UNITS/10 ML VIAL(HUMALOG) SQ SCH ×3 (08:30→17:22)
[2017-02-10 11:11] VITALS: BP 131/56
[2017-02-10] MEDS: ACETAMINOPHEN 325 MG TABLET PO PRN (14:51)
--- NOTE | 2017-02-10 18:57 | NUR ---
Patient had an uneventful day. Held lunch insulin because pt blood sugar was 106 and stated she didnt want to eat. PRN Tylenol was given today.
--- NOTE | 2017-02-10 19:30 | NUR ---
RECEIVED PATIENT. AWAKE, ALERT, AND ORIENTED X3 IN NO APPARENT DISTRESS AT THIS TIME. NO C/O DISCOMFORT OR RESPIRATORY DIFFICULTIES AT PRESENT. RESTING COMFORTABLY AND SLEEPING ON AND OFF . CALL LIGHT WITHIN REACH AAT AND BED ALARM ON
[2017-02-10 20:05] VITALS: BP 117/45
--- NOTE | 2017-02-10 21:35 | NUR ---
REPORT GIVEN TO ANTONIETA DALY. CARE HANDED OFF OF THIS PATIENT TO ADDY AT THIS TIME
[2017-02-10] MEDS: MAGNESIUM OXIDE 400 MG TABLET PO SCH (23:52)
[2017-02-10] MEDS: DULOXETINE 30 MG CAPSULE.DR PO SCH (23:52)
[2017-02-10] MEDS: DIAZEPAM 2 MG TABLET PO SCH (23:53)
[2017-02-10] MEDS: ATORVASTATIN 40 MG TABLET PO SCH (23:53)
[2017-02-10] MEDS: INSULIN DETEMIR 300 UNIT/3 ML CARTRIDGE SQ SCH (23:59)
[2017-02-11] MEDS: ONDANSETRON ODT 4 MG TAB.RAPDIS SL PRN (02:42)
[2017-02-11] MEDS: PANTOPRAZOLE SODIUM 40 MG TABLET.DR PO SCH (07:09)
[2017-02-11] MEDS: LEVOTHYROXINE SODIUM 112 MCG TABLET PO SCH (07:09)
[2017-02-11] MEDS: BLOOD SUGAR DIAGNOSTIC 1 EACH STRIP VI SCH ×4 (07:11→20:54)
[2017-02-11 08:00] VITALS: BP 138/59
[2017-02-11] MEDS: INSULIN LISPRO 1000 UNITS/10 ML VIAL(HUMALOG) SQ SCH ×3 (08:00→17:27)
[2017-02-11] MEDS: MULTIVITAMINS,THERAPEUTIC TABLET PO SCH ×2 (08:40→17:24)
[2017-02-11] MEDS: CLOPIDOGREL 75 MG TABLET PO SCH (08:40)
[2017-02-11] MEDS: AMLODIPINE 10 MG TABLET PO SCH (08:42)
[2017-02-11] MEDS: ASPIRIN 81 MG TAB.CHEW PO SCH (09:57)
[2017-02-11 10:43] LABS: CARBON DIOXIDE 28 mmol/L (21-32); CHLORIDE 93 mmol/L (98-107); CREATININE 0.8 mg/dL (0.6-1.3); GLUCOSE 173 mg/dL (74-106); POTASSIUM 4.3 mmol/L (3.5-5.1); UREA NITROGEN, BLOOD 6 mg/dL (7-18)
[2017-02-11 10:49] LABS: ALANINE AMINOTRANSFERASE 14 U/L (14-59); ALKALINE PHOSPHATASE 73 U/L (50-136); ASPARTATE AMINOTRANSFERASE 17 U/L (15-37); BILIRUBIN,TOTAL 0.3 mg/dL (0.2-1.0); PHOSPHOROUS 3.8 mg/dL (2.5-4.9); TOTAL PROTEIN, SERUM 6.6 g/dL (6.4-8.2)
[2017-02-11 10:49] LABS: BASOPHILS # (AUTO) 0.1 K/uL (0.0-8.0); EOSINOPHILS # (AUTO) 0.3 K/uL (0.0-0.7)
[2017-02-11 10:51] LABS: MAGNESIUM 1.3 mg/dL (1.8-2.4)
[2017-02-11 11:43] LABS: BASOPHILS % (AUTO) 0.8 % (0.0-2.0); EOSINOPHILS % (AUTO) 3.3 % (0.0-7.0); HEMATOCRIT 38.9 % (37-47); HEMOGLOBIN 13.2 G/DL (12.0-16.0); LYMPHOCYTES % (AUTO) 32.5 % (20.5-51.5); MEAN CORPUSCULAR HEMOGLOBIN 29.3 UUG (27.0-31.0); MEAN CORPUSCULAR HGB CONC 34 g/dL (32.0-37.0); MEAN CORPUSCULAR VOLUME 86.5 FL (81.0-99.0); MONOCYTES # (AUTO) 0.6 K/UL (0.1-1.30); MONOCYTES % (AUTO) 6.9 % (0.0-11.0); NEUTROPHILS # (AUTO) 5.2 K/UL (1.8-8.9); NEUTROPHILS % (AUTO) 56.5 % (38.5-71.5); PLATELET COUNT (AUTO) 399 K/UL (150-450); WHITE BLOOD COUNT (AUTO) 9.2 K/UL (4.0-11.2)
[2017-02-11] MEDS: INSULIN REGULAR, HUMAN 300 UNIT/3 ML VIAL SQ PRN (12:08)
--- NOTE | 2017-02-11 14:47 | NUR ---
REHAB TEAM CONFERENCE 02/11/17
--- NOTE | 2017-02-11 18:42 | NUR ---
Patient didnt receive am insulin due to blood sugar being 89. Patient worked with PT/OT today.
--- NOTE | 2017-02-11 19:24 | NUR ---
Received patient resting in bed comfortably. Respirations are unlabored.V/S WNL. Patient reports no pain or discomfort. Will continue to monitor
[2017-02-11 20:11] VITALS: BP 120/54
[2017-02-11] MEDS: DIAZEPAM 2 MG TABLET PO SCH (20:55)
[2017-02-11] MEDS: ATORVASTATIN 40 MG TABLET PO SCH (20:55)
[2017-02-11] MEDS: MAGNESIUM OXIDE 400 MG TABLET PO SCH (20:55)
[2017-02-11] MEDS: DULOXETINE 30 MG CAPSULE.DR PO SCH (20:55)
[2017-02-11] MEDS: INSULIN DETEMIR 300 UNIT/3 ML CARTRIDGE SQ SCH (21:00)
--- NOTE | 2017-02-11 21:49 | NUR ---
Levemir held due to low Blood glucose level of 67. Snack given, will continue to monitor closely
[2017-02-12] MEDS: ONDANSETRON ODT 4 MG TAB.RAPDIS SL PRN (04:13)
[2017-02-12] MEDS: LEVOTHYROXINE SODIUM 112 MCG TABLET PO SCH (06:47)
[2017-02-12] MEDS: BLOOD SUGAR DIAGNOSTIC 1 EACH STRIP VI SCH ×4 (06:47→21:57)
[2017-02-12] MEDS: PANTOPRAZOLE SODIUM 40 MG TABLET.DR PO SCH (06:47)
[2017-02-12] MEDS: INSULIN REGULAR, HUMAN 300 UNIT/3 ML VIAL SQ PRN ×3 (06:57→17:08)
[2017-02-12 07:27] LABS: CARBON DIOXIDE 28 mmol/L (21-32); CHLORIDE 95 mmol/L (98-107); CREATININE 0.7 mg/dL (0.6-1.3); GLUCOSE 141 mg/dL (74-106); MAGNESIUM 1.4 mg/dL (1.8-2.4); POTASSIUM 4.4 mmol/L (3.5-5.1); UREA NITROGEN, BLOOD 7 mg/dL (7-18); URIC ACID 4.4 mg/dL (2.6-6.0)
[2017-02-12 07:29] LABS: THYROID STIMULATING HORMONE 1.933 mIU/mL (0.358-3.740)
[2017-02-12] MEDS: CLOPIDOGREL 75 MG TABLET PO SCH (08:15)
[2017-02-12] MEDS: MULTIVITAMINS,THERAPEUTIC TABLET PO SCH ×2 (08:15→17:09)
[2017-02-12] MEDS: AMLODIPINE 10 MG TABLET PO SCH (08:16)
[2017-02-12] MEDS: ASPIRIN 81 MG TAB.CHEW PO SCH (08:16)
[2017-02-12] MEDS: INSULIN LISPRO 1000 UNITS/10 ML VIAL(HUMALOG) SQ SCH ×3 (08:17→17:10)
[2017-02-12 08:26] VITALS: BP 130/59
[2017-02-12] MEDS: MAGNESIUM OXIDE 400 MG TABLET PO SCH ×3 (12:48→21:50)
--- NOTE | 2017-02-12 18:52 | NUR ---
pt appeared to be more awake than usual. pt had no complications on blood sugar or blood pressure during shift. pt is stable without acute distress. pt ate extra meals as requested. pt was assisted to the bathroom. no falls. no signs of infection. will endorse new orders to night patrol inspector nurse.
[2017-02-12 20:30] VITALS: BP 128/51
[2017-02-12] MEDS ORDERED: DULOXETINE 30 MG CAPSULE.DR PO SCH (21:00)
[2017-02-12] MEDS: DIAZEPAM 2 MG TABLET PO SCH (21:50)
[2017-02-12] MEDS: DULOXETINE 60 MG CAPSULE.DR PO SCH (21:50)
[2017-02-12] MEDS: ATORVASTATIN 40 MG TABLET PO SCH (21:51)
[2017-02-12] MEDS: INSULIN DETEMIR 300 UNIT/3 ML CARTRIDGE SQ SCH (21:57)
[2017-02-12] MEDS: ACETAMINOPHEN 325 MG TABLET PO PRN (23:44)
[2017-02-13] MEDS: ONDANSETRON ODT 4 MG TAB.RAPDIS SL PRN (02:25)
[2017-02-13] MEDS: PANTOPRAZOLE SODIUM 40 MG TABLET.DR PO SCH (06:19)
[2017-02-13] MEDS: LEVOTHYROXINE SODIUM 112 MCG TABLET PO SCH (06:19)
[2017-02-13] MEDS: BLOOD SUGAR DIAGNOSTIC 1 EACH STRIP VI SCH ×4 (07:34→21:13)
[2017-02-13 08:00] VITALS: BP 136/53
[2017-02-13] MEDS: CLOPIDOGREL 75 MG TABLET PO SCH (08:15)
[2017-02-13] MEDS: MULTIVITAMINS,THERAPEUTIC TABLET PO SCH ×2 (08:15→17:17)
[2017-02-13] MEDS: MAGNESIUM OXIDE 400 MG TABLET PO SCH ×3 (08:15→21:20)
[2017-02-13] MEDS: AMLODIPINE 10 MG TABLET PO SCH (08:16)
[2017-02-13] MEDS: ASPIRIN 81 MG TAB.CHEW PO SCH (08:16)
[2017-02-13] MEDS: INSULIN LISPRO 1000 UNITS/10 ML VIAL(HUMALOG) SQ SCH ×3 (08:20→17:16)
--- NOTE | 2017-02-13 09:50 | NUR ---
pt alert and oriented when assessed. vital signs stable. pt was helped to the bathroom when needed. pt took meds as prescribed. will continue to monitor for distress.
[2017-02-13] MEDS: INSULIN REGULAR, HUMAN 300 UNIT/3 ML VIAL SQ PRN ×2 (11:38→17:15)
--- NOTE | 2017-02-13 17:58 | NUR ---
pt son brought some food during the day. blood sugar level at 145 during dinner time. provided lispro and regular insulin with sliding scale. pt continues to be more awake compared to other days. pt given mag ox as precribed by doctor. pt complains of no pain and routinely asks to be helped to the bathroom. pt continues to have little conversations with the nurse. pt continues to have stable vital signs throughout the day. no changes in loc. instructed pt to press loop monitor if any symptoms are felt. pt continues to show improved strenght in bed to chair transfers and walking.
[2017-02-13 20:26] VITALS: BP 134/58
[2017-02-13] MEDS: INSULIN DETEMIR 300 UNIT/3 ML CARTRIDGE SQ SCH (21:19)
[2017-02-13] MEDS: ATORVASTATIN 40 MG TABLET PO SCH (21:20)
[2017-02-13] MEDS: DULOXETINE 60 MG CAPSULE.DR PO SCH (21:20)
[2017-02-13] MEDS: DIAZEPAM 2 MG TABLET PO SCH (21:22)
--- NOTE | 2017-02-13 21:30 | NUR ---
AWAKE UPON ROUNDS. AAOX4 TOLERATED PO MEDS WELL. ASPIRATION PRECAUTIONS MAINTAINED. ON FALL PRECAUTIONS ALSO. ACCUCHECK 99. INCONTINENT OF URINE. KEPT CLEAN AND DRY. NEEDS ATTENDED. DENIES ANY PAIN NOR ANY DISCOMFORT. WILL MONITOR PATIENT. VITALS SIGNS STABLE.
[2017-02-14] MEDS: ONDANSETRON ODT 4 MG TAB.RAPDIS SL PRN (03:20)
[2017-02-14] MEDS: BLOOD SUGAR DIAGNOSTIC 1 EACH STRIP VI SCH ×4 (06:28→20:50)
[2017-02-14] MEDS: LEVOTHYROXINE SODIUM 112 MCG TABLET PO SCH (06:28)
[2017-02-14] MEDS: PANTOPRAZOLE SODIUM 40 MG TABLET.DR PO SCH (06:28)
--- NOTE | 2017-02-14 06:43 | NUR ---
Slept well most of the shift. Repositioned for comfort. Turned from sides to sides. Incontinent of urine x2. Kept clean and dry. Fall precautions maintained. Denies any pain at this time. Complained of being constipated, Prune juice given. No distention noted. Blood sugar checked it was 151. Tolerated po meds well. Zofran 4mg given earlier @ 0320am for nausea and vomiting, it was effective. No nausea nor any vomiting noted. Will monitor patient. Call sinclair within reach. Attended to needs promptly.
[2017-02-14 06:46] LABS: ALANINE AMINOTRANSFERASE 17 U/L (14-59); ALKALINE PHOSPHATASE 80 U/L (50-136); ASPARTATE AMINOTRANSFERASE 20 U/L (15-37); BILIRUBIN,TOTAL 0.3 mg/dL (0.2-1.0); CARBON DIOXIDE 29 mmol/L (21-32); CHLORIDE 94 mmol/L (98-107); CREATININE 0.8 mg/dL (0.6-1.3); GLUCOSE 117 mg/dL (74-106); MAGNESIUM 1.4 mg/dL (1.8-2.4); PHOSPHOROUS 3.2 mg/dL (2.5-4.9); POTASSIUM 4.4 mmol/L (3.5-5.1); TOTAL PROTEIN, SERUM 7.3 g/dL (6.4-8.2); UREA NITROGEN, BLOOD 6 mg/dL (7-18)
[2017-02-14 06:48] LABS: BASOPHILS # (AUTO) 0.1 K/uL (0.0-8.0)
--- NOTE | 2017-02-14 07:20 | NUR ---
Report given to dayshift nurse.
[2017-02-14 07:42] LABS: BASOPHILS % (AUTO) 0.9 % (0.0-2.0); EOSINOPHILS # (AUTO) 0.3 K/uL (0.0-0.7); EOSINOPHILS % (AUTO) 3.7 % (0.0-7.0); LYMPHOCYTES # (AUTO) 2.6 K/UL (0.8-4.8); LYMPHOCYTES % (AUTO) 27.5 % (20.5-51.5); MONOCYTES % (AUTO) 10.3 % (0.0-11.0); NEUTROPHILS # (AUTO) 5.3 K/UL (1.8-8.9); NEUTROPHILS % (AUTO) 57.6 % (38.5-71.5); PLATELET COUNT (AUTO) 361 K/UL (150-450); WHITE BLOOD COUNT (AUTO) 9.3 K/UL (4.0-11.2)
[2017-02-14 07:46] LABS: HEMOGLOBIN 12.4 G/DL (12.0-16.0); RED BLOOD CELL COUNT(AUTO) 4.36 MIL/UL (4.2-5.4)
[2017-02-14 07:47] LABS: HEMATOCRIT 37.9 % (37-47); MEAN CORPUSCULAR HEMOGLOBIN 28.4 UUG (27.0-31.0); MEAN CORPUSCULAR HGB CONC 33 g/dL (32.0-37.0); MEAN CORPUSCULAR VOLUME 86.9 FL (81.0-99.0)
[2017-02-14] MEDS: INSULIN LISPRO 1000 UNITS/10 ML VIAL(HUMALOG) SQ SCH ×3 (08:00→17:27)
[2017-02-14 08:06] VITALS: BP 122/56
[2017-02-14] MEDS: ASPIRIN 81 MG TAB.CHEW PO SCH (09:45)
[2017-02-14] MEDS: AMLODIPINE 10 MG TABLET PO SCH (09:49)
[2017-02-14] MEDS: CLOPIDOGREL 75 MG TABLET PO SCH (09:49)
[2017-02-14] MEDS: MULTIVITAMINS,THERAPEUTIC TABLET PO SCH ×2 (09:50→17:31)
--- NOTE | 2017-02-14 11:47 | NUR ---
DAILY NOTE [id number] FOR AFTERNOON PT REFUSED INSULIN. Addendum: 02/14/17 at 1150 by Lore Segura RN SHE REFUSES THE SLIDING SCALE COVERAGE FOR THIS AFTERNOON BS OF 160. 6U HUMALOG GIVEN FOR THIS MORNING ORDERED AND PO ORAL HYPOGLYCEMICS TAKEN
[2017-02-14] MEDS: MAGNESIUM OXIDE 400 MG TABLET PO SCH ×5 (14:00→22:30)
[2017-02-14 20:09] VITALS: BP 124/64
[2017-02-14] MEDS: DULOXETINE 60 MG CAPSULE.DR PO SCH (20:52)
[2017-02-14] MEDS: ATORVASTATIN 40 MG TABLET PO SCH (20:52)
[2017-02-14] MEDS: DIAZEPAM 2 MG TABLET PO SCH (20:53)
[2017-02-14] MEDS: INSULIN DETEMIR 300 UNIT/3 ML CARTRIDGE SQ SCH (21:04)
[2017-02-15] MEDS: LEVOTHYROXINE SODIUM 112 MCG TABLET PO SCH (06:06)
[2017-02-15] MEDS: PANTOPRAZOLE SODIUM 40 MG TABLET.DR PO SCH (06:07)
[2017-02-15] MEDS: ONDANSETRON ODT 4 MG TAB.RAPDIS SL PRN (06:07)
--- NOTE | 2017-02-15 06:38 | NUR ---
AAOX4 ASPIRATION PRECAUTIONS MAINTAINED. TOLERATED PO MEDS WELL. BLOOD SUGAR CHECKED 102. SNACKS GIVEN, HAD YOGURT. REPOSITIONED FOR COMFORT. TURNED FROM SIDES TO SIDES.VITAL SIGNS STABLE. OOB TO THE BR 2X. VOIDED. NO BM NOTED. COMPLAINED OF FEELING NAUSEOUS, ZOFRAN 4MG GIVE. WILL MONITOR PATIENT. NO VOMITING NOTED. ATTENDED TO NEEDS. CALL DE OLIVEIRA WITHIN REACH. FALL PRECAUTIONS MAINTAINED.
[2017-02-15] MEDS: BLOOD SUGAR DIAGNOSTIC 1 EACH STRIP VI SCH ×4 (06:55→21:57)
[2017-02-15] MEDS: INSULIN LISPRO 1000 UNITS/10 ML VIAL(HUMALOG) SQ SCH ×3 (08:00→17:00)
[2017-02-15 08:51] VITALS: BP 131/54
[2017-02-15] MEDS: CLOPIDOGREL 75 MG TABLET PO SCH (09:00)
[2017-02-15] MEDS: AMLODIPINE 10 MG TABLET PO SCH (09:00)
[2017-02-15] MEDS: ASPIRIN 81 MG TAB.CHEW PO SCH (09:00)
[2017-02-15] MEDS: MULTIVITAMINS,THERAPEUTIC TABLET PO SCH ×2 (09:00→17:30)
[2017-02-15] MEDS: INSULIN REGULAR, HUMAN 300 UNIT/3 ML VIAL SQ PRN (13:24)
[2017-02-15] MEDS: SENNOSIDES/DOCUSATE SODIUM TABLET PO SCH (15:30)
--- NOTE | 2017-02-15 15:31 | NUR ---
DAILY NOTES C/O CONSTIPATION NO BM X3-4 DAYS. PERICOLACE TABS ORDERED
[2017-02-15] MEDS ORDERED: BISACODYL 5 MG TABLET.DR PO PRN (17:45)
[2017-02-15 20:00] VITALS: BP 96/56
[2017-02-15] MEDS: DULOXETINE 60 MG CAPSULE.DR PO SCH (21:54)
[2017-02-15] MEDS: MAGNESIUM OXIDE 400 MG TABLET PO SCH (21:54)
[2017-02-15] MEDS: ATORVASTATIN 40 MG TABLET PO SCH (21:54)
[2017-02-15] MEDS: DIAZEPAM 2 MG TABLET PO SCH (21:55)
[2017-02-15] MEDS: INSULIN DETEMIR 300 UNIT/3 ML CARTRIDGE SQ SCH (22:00)
[2017-02-16] MEDS: ONDANSETRON ODT 4 MG TAB.RAPDIS SL PRN (02:23)
[2017-02-16] MEDS: PANTOPRAZOLE SODIUM 40 MG TABLET.DR PO SCH (06:22)
[2017-02-16] MEDS: LEVOTHYROXINE SODIUM 112 MCG TABLET PO SCH (06:22)
[2017-02-16] MEDS: BLOOD SUGAR DIAGNOSTIC 1 EACH STRIP VI SCH ×4 (06:31→22:12)
[2017-02-16 07:30] VITALS: BP 111/66
[2017-02-16] MEDS: AMLODIPINE 10 MG TABLET PO SCH (08:30)
[2017-02-16] MEDS: CLOPIDOGREL 75 MG TABLET PO SCH (08:30)
[2017-02-16] MEDS: MULTIVITAMINS,THERAPEUTIC TABLET PO SCH ×2 (08:30→16:53)
[2017-02-16] MEDS: ASPIRIN 81 MG TAB.CHEW PO SCH (08:31)
[2017-02-16] MEDS: SENNOSIDES/DOCUSATE SODIUM TABLET PO SCH (08:31)
[2017-02-16] MEDS: INSULIN LISPRO 1000 UNITS/10 ML VIAL(HUMALOG) SQ SCH ×3 (08:33→16:55)
--- NOTE | 2017-02-16 09:07 | NUR ---
PT HAD DECREASED BP OF 111/66 HR 75. BP MEDS NOT GIVEN. PT ASYMPTOMATIC. NO SIGNS OF DISTRESS. WILL REASESS FOR BP MONITORING.
[2017-02-16 20:00] VITALS: BP 106/60
[2017-02-16 20:08] VITALS: BP 106/60
[2017-02-16] MEDS: MAGNESIUM OXIDE 400 MG TABLET PO SCH (21:55)
[2017-02-16] MEDS: DULOXETINE 60 MG CAPSULE.DR PO SCH (21:55)
[2017-02-16] MEDS: ATORVASTATIN 40 MG TABLET PO SCH (21:55)
[2017-02-16] MEDS: DIAZEPAM 2 MG TABLET PO SCH (21:55)
[2017-02-16] MEDS: INSULIN DETEMIR 300 UNIT/3 ML CARTRIDGE SQ SCH (22:15)
--- NOTE | 2017-02-17 06:16 | NUR ---
Slept most of the night no c/o. Incontinent of urine.
[2017-02-17] MEDS: LEVOTHYROXINE SODIUM 112 MCG TABLET PO SCH (06:44)
[2017-02-17] MEDS: PANTOPRAZOLE SODIUM 40 MG TABLET.DR PO SCH (06:44)
[2017-02-17] MEDS: BLOOD SUGAR DIAGNOSTIC 1 EACH STRIP VI SCH ×4 (06:50→23:37)
--- NOTE | 2017-02-17 06:52 | NUR ---
Turned from side to side. doesn't change position on her own.
[2017-02-17 07:35] VITALS: BP 141/63
[2017-02-17] MEDS: INSULIN LISPRO 1000 UNITS/10 ML VIAL(HUMALOG) SQ SCH ×3 (08:00→16:56)
[2017-02-17] MEDS: MULTIVITAMINS,THERAPEUTIC TABLET PO SCH ×2 (09:07→17:00)
[2017-02-17] MEDS: SENNOSIDES/DOCUSATE SODIUM TABLET PO SCH (09:07)
[2017-02-17] MEDS: ASPIRIN 81 MG TAB.CHEW PO SCH (09:07)
[2017-02-17] MEDS: CLOPIDOGREL 75 MG TABLET PO SCH (09:07)
[2017-02-17] MEDS: AMLODIPINE 10 MG TABLET PO SCH (09:07)
[2017-02-17] MEDS: INSULIN REGULAR, HUMAN 300 UNIT/3 ML VIAL SQ PRN ×2 (12:05→16:55)
[2017-02-17 20:04] VITALS: BP 131/51
[2017-02-17] MEDS: MAGNESIUM OXIDE 400 MG TABLET PO SCH (22:03)
[2017-02-17] MEDS: ATORVASTATIN 40 MG TABLET PO SCH (22:04)
[2017-02-17] MEDS: DIAZEPAM 2 MG TABLET PO SCH (22:04)
[2017-02-17] MEDS: DULOXETINE 60 MG CAPSULE.DR PO SCH (22:04)
[2017-02-18] MEDS ORDERED: INSULIN DETEMIR 300 UNIT/3 ML CARTRIDGE SQ ONE (00:19)
[2017-02-18] MEDS: INSULIN DETEMIR 300 UNIT/3 ML CARTRIDGE SQ SCH ×2 (00:31→20:54)
[2017-02-18] MEDS: ACETAMINOPHEN 325 MG TABLET PO PRN (05:02)
--- NOTE | 2017-02-18 05:59 | NUR ---
Doesn't like to be disturbed, but turned every 2 hrs
[2017-02-18] MEDS: BLOOD SUGAR DIAGNOSTIC 1 EACH STRIP VI SCH ×4 (06:58→20:51)
[2017-02-18] MEDS: PANTOPRAZOLE SODIUM 40 MG TABLET.DR PO SCH (06:59)
[2017-02-18] MEDS: LEVOTHYROXINE SODIUM 112 MCG TABLET PO SCH (06:59)
[2017-02-18 08:00] VITALS: BP 137/63
[2017-02-18] MEDS: INSULIN LISPRO 1000 UNITS/10 ML VIAL(HUMALOG) SQ SCH ×3 (08:00→16:57)
--- NOTE | 2017-02-18 09:30 | NUR ---
Assist to bedpan at this time.
[2017-02-18] MEDS: MULTIVITAMINS,THERAPEUTIC TABLET PO SCH ×2 (09:48→16:55)
[2017-02-18] MEDS: SENNOSIDES/DOCUSATE SODIUM TABLET PO SCH (09:48)
[2017-02-18] MEDS: AMLODIPINE 10 MG TABLET PO SCH (09:48)
[2017-02-18] MEDS: CLOPIDOGREL 75 MG TABLET PO SCH (09:48)
[2017-02-18] MEDS: ASPIRIN 81 MG TAB.CHEW PO SCH (09:48)
--- NOTE | 2017-02-18 11:30 | NUR ---
Patient working with occupational therapy at this time.
--- NOTE | 2017-02-18 13:45 | NUR ---
Reposition of patient to left side from right side lying. Patient wound care photos.
--- NOTE | 2017-02-18 14:26 | NUR ---
Assist to bedpan at this time.
--- NOTE | 2017-02-18 14:43 | NUR ---
REHAB TEAM CONFERENCE 02/18/17
--- NOTE | 2017-02-18 18:44 | NUR ---
HANDOFF REPORT FOR NIGHT NURSE.
[2017-02-18 20:28] VITALS: BP 151/67
[2017-02-18] MEDS: DULOXETINE 60 MG CAPSULE.DR PO SCH (20:47)
[2017-02-18] MEDS: DIAZEPAM 2 MG TABLET PO SCH (20:47)
[2017-02-18] MEDS: MAGNESIUM OXIDE 400 MG TABLET PO SCH (20:47)
[2017-02-18] MEDS: ATORVASTATIN 40 MG TABLET PO SCH (20:47)
[2017-02-18] MEDS: INSULIN REGULAR, HUMAN 300 UNIT/3 ML VIAL SQ PRN (20:53)
[2017-02-19] MEDS: ACETAMINOPHEN 325 MG TABLET PO PRN (04:48)
[2017-02-19] MEDS: PANTOPRAZOLE SODIUM 40 MG TABLET.DR PO SCH (05:52)
[2017-02-19] MEDS: LEVOTHYROXINE SODIUM 112 MCG TABLET PO SCH (05:52)
[2017-02-19] MEDS: BLOOD SUGAR DIAGNOSTIC 1 EACH STRIP VI SCH ×4 (05:54→20:37)
--- NOTE | 2017-02-19 06:30 | NUR ---
pt slept well overnight until residence hall director she woke up complaining of headache given tylenol and with good relief. in bed all night ,incontinent of bladder ,no bm. will continue to monitor. call light at reached,bed alarm active at all times.
--- NOTE | 2017-02-19 07:03 | NUR ---
Pt received in bed, no distress noted. A/O x3 with periods of forgetfulness. Pt denies any pain. Bed kept low/locked position, Call light and personal belongings within reach. Plan of care discussed.
[2017-02-19 08:00] VITALS: BP 146/63
[2017-02-19] MEDS: MULTIVITAMINS,THERAPEUTIC TABLET PO SCH ×2 (08:29→17:22)
[2017-02-19] MEDS: CLOPIDOGREL 75 MG TABLET PO SCH (08:29)
[2017-02-19] MEDS: ASPIRIN 81 MG TAB.CHEW PO SCH (08:30)
[2017-02-19] MEDS: SENNOSIDES/DOCUSATE SODIUM TABLET PO SCH (08:30)
[2017-02-19] MEDS: AMLODIPINE 10 MG TABLET PO SCH (08:30)
[2017-02-19] MEDS: INSULIN LISPRO 1000 UNITS/10 ML VIAL(HUMALOG) SQ SCH ×3 (08:44→17:23)
--- NOTE | 2017-02-19 18:48 | NUR ---
NO significant changes noted, pt was able to participate with physical therapy and tolerated well. Pt resting in bed at this time. No acute changes noted. Call light and personal belongings remain within reach.
[2017-02-19 20:15] VITALS: BP 137/58
[2017-02-19] MEDS: ATORVASTATIN 40 MG TABLET PO SCH (20:31)
[2017-02-19] MEDS: DULOXETINE 60 MG CAPSULE.DR PO SCH (20:31)
[2017-02-19] MEDS: MAGNESIUM OXIDE 400 MG TABLET PO SCH (20:34)
[2017-02-19] MEDS: DIAZEPAM 2 MG TABLET PO SCH (20:35)
[2017-02-19] MEDS: INSULIN DETEMIR 300 UNIT/3 ML CARTRIDGE SQ SCH (20:48)
--- NOTE | 2017-02-19 21:00 | NUR ---
BS 69MG/DL, NO INSULIN GIVEN, NIGHT SNACK GIVEN ATE WELL ,100% ( 2 YOGURT, 1 PUDDING)
[2017-02-20] MEDS: LEVOTHYROXINE SODIUM 112 MCG TABLET PO SCH (06:04)
[2017-02-20] MEDS: PANTOPRAZOLE SODIUM 40 MG TABLET.DR PO SCH (06:04)
[2017-02-20] MEDS: BLOOD SUGAR DIAGNOSTIC 1 EACH STRIP VI SCH ×5 (06:05→20:29)
--- NOTE | 2017-02-20 06:30 | NUR ---
PT SLEPT WELL ,INCONTINENT WITH BLADDER, DIAPER CHANGED 5X, PT CALLED WHEN WET ALREADY. DENIES ANY PAIN,BS 139 MG/DL THIS MORNING.ALL NEEDS ATTENDED, KEPT CLEAN AND DRY.
[2017-02-20 07:48] VITALS: BP 138/61
[2017-02-20] MEDS: ASPIRIN 81 MG TAB.CHEW PO SCH (09:15)
[2017-02-20] MEDS: MULTIVITAMINS,THERAPEUTIC TABLET PO SCH ×2 (09:15→17:36)
[2017-02-20] MEDS: AMLODIPINE 10 MG TABLET PO SCH (09:16)
[2017-02-20] MEDS: CLOPIDOGREL 75 MG TABLET PO SCH (09:16)
[2017-02-20] MEDS: SENNOSIDES/DOCUSATE SODIUM TABLET PO SCH (09:16)
[2017-02-20] MEDS: INSULIN REGULAR, HUMAN 300 UNIT/3 ML VIAL SQ PRN ×3 (09:22→20:40)
[2017-02-20] MEDS: INSULIN LISPRO 1000 UNITS/10 ML VIAL(HUMALOG) SQ SCH ×3 (09:25→17:00)
[2017-02-20] MEDS: ACETAMINOPHEN 325 MG TABLET PO PRN (10:22)
[2017-02-20 19:48] VITALS: BP 127/51
[2017-02-20] MEDS: DULOXETINE 60 MG CAPSULE.DR PO SCH (20:24)
[2017-02-20] MEDS: MAGNESIUM OXIDE 400 MG TABLET PO SCH (20:25)
[2017-02-20] MEDS: ATORVASTATIN 40 MG TABLET PO SCH (20:25)
[2017-02-20] MEDS: DIAZEPAM 2 MG TABLET PO SCH (20:28)
[2017-02-20] MEDS: INSULIN DETEMIR 300 UNIT/3 ML CARTRIDGE SQ SCH (20:38)
--- NOTE | 2017-02-20 22:00 | NUR ---
received to care, lying in bed, pleasant upon approach. compliant with medications, and staff direction. repositioned q 2 hours. kept clean and dry. bedtime snack given. as of 2200, she appears to be asleep. no distress noted. will continue to monitor closely.
--- NOTE | 2017-02-21 06:00 | NUR ---
slept well last night. is now awake. no distress noted.
[2017-02-21] MEDS: LEVOTHYROXINE SODIUM 112 MCG TABLET PO SCH (06:11)
[2017-02-21] MEDS: PANTOPRAZOLE SODIUM 40 MG TABLET.DR PO SCH (06:11)
[2017-02-21] MEDS: BLOOD SUGAR DIAGNOSTIC 1 EACH STRIP VI SCH ×2 (06:36→12:05)
[2017-02-21 07:30] VITALS: BP 132/61
[2017-02-21] MEDS: MULTIVITAMINS,THERAPEUTIC TABLET PO SCH (08:45)
[2017-02-21] MEDS: ASPIRIN 81 MG TAB.CHEW PO SCH (08:45)
[2017-02-21] MEDS: CLOPIDOGREL 75 MG TABLET PO SCH (08:46)
[2017-02-21] MEDS: SENNOSIDES/DOCUSATE SODIUM TABLET PO SCH (08:46)
[2017-02-21 08:47] VITALS: BP 156/73
[2017-02-21] MEDS: AMLODIPINE 10 MG TABLET PO SCH (08:47)
[2017-02-21] MEDS: INSULIN LISPRO 1000 UNITS/10 ML VIAL(HUMALOG) SQ SCH ×2 (08:51→12:13)
--- NOTE | 2017-02-21 10:00 | NUR ---
Charge nurse spoke with GILBERTO (son) and aware of pt leaving for SNF @ 430 fiber picker. Orion Ortiz states no bed will be available until after 400 and request for pickup time @ [facility] for 430.
[2017-02-21] MEDS: INSULIN REGULAR, HUMAN 300 UNIT/3 ML VIAL SQ PRN (12:15)
--- NOTE | 2017-02-21 16:01 | NUR ---
Walker taken. Bedside commode and wheelchair not taken for DME.
--- NOTE | 2017-02-21 16:34 | NUR ---
Pt left for SNF. Pt is in no acute distress upon distress.
== END 2017-02-21 16:30 | DRG 57 ==
PROVIDERS: ADMIT Physical Medicine & Rehabilitation Pain Medicine; ATTEND Physical Medicine & Rehabilitation Pain Medicine
DX: I69.398 Other sequelae of cerebral infarction (principal); E46 Unspecified protein-calorie malnutrition; I48.0 Paroxysmal atrial fibrillation; F33.2 Major depressive disorder, recurrent severe without psychotic features; N39.0 Urinary tract infection, site not specified; E87.1 Hypo-osmolality and hyponatremia; I11.0 Hypertensive heart disease with heart failure; I50.9 Heart failure, unspecified; R00.1 Bradycardia, unspecified; B96.20 Unspecified Escherichia coli [E. coli] as the cause of diseases classified elsewhere; E11.9 Type 2 diabetes mellitus without complications; E83.42 Hypomagnesemia; E03.9 Hypothyroidism, unspecified; Z95.1 Presence of aortocoronary bypass graft; R41.82 Altered mental status, unspecified; I25.10 Atherosclerotic heart disease of native coronary artery without angina pectoris; Z87.891 Personal history of nicotine dependence; Z98.61 Coronary angioplasty status; E78.5 Hyperlipidemia, unspecified; R42 Dizziness and giddiness; R11.0 Nausea; R26.9 Unspecified abnormalities of gait and mobility; R27.9 Unspecified lack of coordination; Z88.6 Allergy status to analgesic agent; Z88.1 Allergy status to other antibiotic agents; D72.829 Elevated white blood cell count, unspecified; Z88.8 Allergy status to other drugs, medicaments and biological substances; T43.215A Adverse effect of selective serotonin and norepinephrine reuptake inhibitors, initial encounter; Y92.230 Patient room in hospital as the place of occurrence of the external cause
CPT/HCPCS: 36415; 70030-TC; 71010; 83735; 84100; 84443; 84550; 85025; 87077; 87086; 92523; 92526; 93005; 97110; 97112; 97116; 97161; 97165; 97530; 97535; A4663; C1758; J1815; J8597; Q0162

== ENCOUNTER 2017-01-31 17:52 | Inpatient (IN) | payer MEDICARE ==
[~2017-01-31 17:52] MED LIST changes: +ACET-2154 PO; -AMLO10TA4 PO; +ASPI-1169 PO; +ATOR80TA PO; +CARV6.252 PO; +CEROVITE SENIOR; +CLOP75TA33 PO; -CYAN10009 PO; +DIPH25TA22 PO; -DULO30CA2 PO; -ESTR0.623 PO; -GLYB5TAB7 PO; -HYDR-548 PO; +INSU200I SQ; +INSU3INS6 SQ; +LEVO112T5 PO; -LEVO150T PO; -MAGN400O6 PO; +MECL-102 PO; -Magnesium Oxide PO; -Metformin Hcl PO; +ONDA4TAB8 PO; -SIMV20TA6 PO; -VALS160T2 PO; +VALS80TA2 GT
[2017-01-31 20:24] VITALS: BP 134/53
[2017-01-31] MEDS ORDERED: LEVOFLOXACIN 250 MG TABLET PO SCH (20:45)
[2017-01-31] MEDS ORDERED: DEXTROSE 50% 50 ML DISP.SYRIN IV PRN (20:45)
[2017-01-31] MEDS ORDERED: CLONIDINE HCL 0.1 MG TABLET PO PRN (20:45)
[2017-01-31] MEDS: MAGNESIUM OXIDE 400 MG TABLET PO SCH (21:00)
[2017-01-31] MEDS: Z GUARD REMEDY PASTE 57 GM TUBE TOP SCH (21:00)
[2017-01-31] MEDS: INSULIN REGULAR, HUMAN 300 UNIT/3 ML VIAL SQ PRN (22:01)
[2017-01-31] MEDS: BLOOD SUGAR DIAGNOSTIC 1 EACH STRIP VI SCH (22:08)
[2017-02-01 00:30] VITALS: BP 167/56
[2017-02-01 04:00] VITALS: BP 157/54
[2017-02-01 06:59] LABS: CARBON DIOXIDE 28 mmol/L (21-32); CHLORIDE 97 mmol/L (98-107); CREATININE 0.8 mg/dL (0.6-1.3); GLUCOSE 187 mg/dL (74-106); POTASSIUM 4.2 mmol/L (3.5-5.1); UREA NITROGEN, BLOOD 11 mg/dL (7-18)
[2017-02-01] MEDS: BLOOD SUGAR DIAGNOSTIC 1 EACH STRIP VI SCH ×4 (07:06→20:24)
[2017-02-01 07:40] LABS: BASOPHILS # (AUTO) 0.1 K/uL (0.0-8.0); BASOPHILS % (AUTO) 0.6 % (0.0-2.0); EOSINOPHILS # (AUTO) 0.3 K/uL (0.0-0.7); EOSINOPHILS % (AUTO) 2.8 % (0.0-7.0); HEMATOCRIT 35.7 % (37-47); HEMOGLOBIN 12.2 G/DL (12.0-16.0); LYMPHOCYTES # (AUTO) 2.8 K/UL (0.8-4.8); LYMPHOCYTES % (AUTO) 27.8 % (20.5-51.5); MEAN CORPUSCULAR HEMOGLOBIN 29.5 UUG (27.0-31.0); MEAN CORPUSCULAR HGB CONC 34 g/dL (32.0-37.0); MEAN CORPUSCULAR VOLUME 86.5 FL (81.0-99.0); MONOCYTES # (AUTO) 1.2 K/UL (0.1-1.30); MONOCYTES % (AUTO) 11.6 % (0.0-11.0); NEUTROPHILS # (AUTO) 5.7 K/UL (1.8-8.9); NEUTROPHILS % (AUTO) 57.2 % (38.5-71.5); RED BLOOD CELL COUNT(AUTO) 4.13 MIL/UL (4.2-5.4)
[2017-02-01] MEDS ORDERED: ONDANSETRON ODT 4 MG TAB.RAPDIS SL PRN (07:45)
[2017-02-01] MEDS ORDERED: HOME MED MISCELLANEOUS XX SCH (07:45)
[2017-02-01] MEDS ORDERED: MECLIZINE HCL 25 MG TABLET PO PRN (07:45)
[2017-02-01] MEDS ORDERED: diphenhydrAMINE 25 MG CAP PO PRN (07:45)
[2017-02-01] MEDS ORDERED: ACETAMINOPHEN 325 MG TABLET PO PRN (07:45)
[2017-02-01 07:46] LABS: MAGNESIUM 1.2 mg/dL (1.8-2.4)
[2017-02-01] MEDS: LEVOFLOXACIN 250 MG TABLET PO SCH (08:18)
[2017-02-01] MEDS: LEVOTHYROXINE SODIUM 112 MCG TABLET PO SCH (08:18)
[2017-02-01] MEDS: PANTOPRAZOLE SODIUM 40 MG TABLET.DR PO SCH (08:18)
[2017-02-01] MEDS: CLOPIDOGREL 75 MG TABLET PO SCH (08:18)
[2017-02-01] MEDS: ASPIRIN 81 MG TAB.CHEW PO SCH (08:18)
[2017-02-01] MEDS: MULTIVIT, IRON, MIN NO. 8, FA TABLET PO SCH ×2 (08:18→16:47)
[2017-02-01 08:19] LABS: PLATELET COUNT (AUTO) 247 K/UL (150-450); WHITE BLOOD COUNT (AUTO) 10.1 K/UL (4.0-11.2)
[2017-02-01] MEDS: INSULIN LISPRO 1000 UNITS/10 ML VIAL(HUMALOG) SQ SCH ×3 (08:20→17:19)
[2017-02-01] MEDS: INSULIN REGULAR, HUMAN 300 UNIT/3 ML VIAL SQ PRN ×3 (08:21→17:18)
[2017-02-01] MEDS: Z GUARD REMEDY PASTE 57 GM TUBE TOP SCH ×2 (08:26→20:32)
[2017-02-01] MEDS ORDERED: MAGNESIUM SULFATE 2 GM in IV DEXTROSE 5% 100 ML IV ONE (09:45)
[2017-02-01] MEDS ORDERED: MAGNESIUM SULFATE/D5W 100 ML IV SCH ×2 (09:45→11:15)
[2017-02-01] MEDS: MAGNESIUM SULFATE/D5W 100 ML IV SCH ×2 (09:53→11:34)
[2017-02-01 12:05] VITALS: BP 133/57
[2017-02-01] MEDS: AMLODIPINE 5 MG TABLET PO SCH (12:37)
[2017-02-01 16:47] VITALS: BP 133/45
[2017-02-01 20:10] VITALS: BP 148/61
[2017-02-01] MEDS: MAGNESIUM OXIDE 400 MG TABLET PO SCH (20:32)
[2017-02-01] MEDS ORDERED: ATORVASTATIN 40 MG TABLET PO SCH (21:00)
[2017-02-01] MEDS ORDERED: DIAZEPAM 2 MG TABLET PO SCH (21:00)
[2017-02-01] MEDS ORDERED: INSULIN DETEMIR 300 UNIT/3 ML CARTRIDGE SQ SCH (21:00)
[2017-02-02] VITALS: BP 145/52
[2017-02-02 04:56] VITALS: BP 154/61
[2017-02-02] MEDS: PANTOPRAZOLE SODIUM 40 MG TABLET.DR PO SCH (06:01)
[2017-02-02] MEDS: LEVOTHYROXINE SODIUM 112 MCG TABLET PO SCH (06:01)
[2017-02-02] MEDS: BLOOD SUGAR DIAGNOSTIC 1 EACH STRIP VI SCH ×2 (06:36→12:13)
[2017-02-02 07:37] LABS: BASOPHILS # (AUTO) 0.1 K/uL (0.0-8.0); BASOPHILS % (AUTO) 0.9 % (0.0-2.0); EOSINOPHILS # (AUTO) 0.3 K/uL (0.0-0.7); EOSINOPHILS % (AUTO) 2.4 % (0.0-7.0); HEMATOCRIT 36.1 % (37-47); HEMOGLOBIN 12.3 G/DL (12.0-16.0); LYMPHOCYTES # (AUTO) 3.1 K/UL (0.8-4.8); LYMPHOCYTES % (AUTO) 26.9 % (20.5-51.5); MEAN CORPUSCULAR HEMOGLOBIN 29.3 UUG (27.0-31.0); MEAN CORPUSCULAR HGB CONC 34 g/dL (32.0-37.0); MEAN CORPUSCULAR VOLUME 86.4 FL (81.0-99.0); MONOCYTES # (AUTO) 1.2 K/UL (0.1-1.30); MONOCYTES % (AUTO) 10.5 % (0.0-11.0); NEUTROPHILS # (AUTO) 6.7 K/UL (1.8-8.9); NEUTROPHILS % (AUTO) 59.3 % (38.5-71.5); PLATELET COUNT (AUTO) 367 K/UL (150-450); RED BLOOD CELL COUNT(AUTO) 4.18 MIL/UL (4.2-5.4); WHITE BLOOD COUNT (AUTO) 11.4 K/UL (4.0-11.2)
[2017-02-02] MEDS ORDERED: AMLO5TAB2 PO (07:48)
[2017-02-02] MEDS ORDERED: LEVO500T90 PO (07:52)
[2017-02-02 08:06] LABS: ALANINE AMINOTRANSFERASE 15 U/L (14-59); ALKALINE PHOSPHATASE 79 U/L (50-136); ASPARTATE AMINOTRANSFERASE 14 U/L (15-37); BILIRUBIN,TOTAL 0.4 mg/dL (0.2-1.0); CARBON DIOXIDE 28 mmol/L (21-32); CHLORIDE 97 mmol/L (98-107); CREATININE 0.8 mg/dL (0.6-1.3); GLUCOSE 165 mg/dL (74-106); MAGNESIUM 1.5 mg/dL (1.8-2.4); PHOSPHOROUS 3.5 mg/dL (2.5-4.9); POTASSIUM 4.3 mmol/L (3.5-5.1); TOTAL PROTEIN, SERUM 7.1 g/dL (6.4-8.2); UREA NITROGEN, BLOOD 9 mg/dL (7-18)
[2017-02-02] MEDS: INSULIN REGULAR, HUMAN 300 UNIT/3 ML VIAL SQ PRN (08:31)
[2017-02-02] MEDS: INSULIN LISPRO 1000 UNITS/10 ML VIAL(HUMALOG) SQ SCH ×2 (08:32→12:17)
[2017-02-02] MEDS: MULTIVIT, IRON, MIN NO. 8, FA TABLET PO SCH (08:57)
[2017-02-02] MEDS: LEVOFLOXACIN 250 MG TABLET PO SCH (08:57)
[2017-02-02] MEDS: CLOPIDOGREL 75 MG TABLET PO SCH (08:57)
[2017-02-02] MEDS: ASPIRIN 81 MG TAB.CHEW PO SCH (08:57)
[2017-02-02] MEDS: Z GUARD REMEDY PASTE 57 GM TUBE TOP SCH (08:58)
[2017-02-02] MEDS: AMLODIPINE 5 MG TABLET PO SCH (08:58)
[2017-02-02 12:25] VITALS: BP 139/50
[2017-02-02] MEDS ORDERED: AMLO5TAB4 PO (17:34)
== END 2017-02-02 14:30 | DRG 309 ==
LOC: MED 17:52 → TELE 18:47
PROVIDERS: ADMIT Internal Medicine; ATTEND Internal Medicine
DX: R00.1 Bradycardia, unspecified (principal); N39.0 Urinary tract infection, site not specified; Y92.239 Unspecified place in hospital as the place of occurrence of the external cause; T44.7X5A Adverse effect of beta-adrenoreceptor antagonists, initial encounter; Z88.1 Allergy status to other antibiotic agents; Z88.0 Allergy status to penicillin; Z88.8 Allergy status to other drugs, medicaments and biological substances; I25.10 Atherosclerotic heart disease of native coronary artery without angina pectoris; Z98.61 Coronary angioplasty status; Z95.1 Presence of aortocoronary bypass graft; Z87.820 Personal history of traumatic brain injury; E78.5 Hyperlipidemia, unspecified; E11.9 Type 2 diabetes mellitus without complications; B96.20 Unspecified Escherichia coli [E. coli] as the cause of diseases classified elsewhere; Z79.899 Other long term (current) drug therapy; Z79.4 Long term (current) use of insulin; I10 Essential (primary) hypertension; Z79.82 Long term (current) use of aspirin; Z86.73 Personal history of transient ischemic attack (TIA), and cerebral infarction without residual deficits
CPT/HCPCS: 36415; 83735; 84100; 85025; 97110; 97530; J1815; J3475; J7050